=== PATIENT | female | born 1980 | race Caucasian/White ===

== ENCOUNTER 2018-06-27 17:17 | Emergency (ER) | payer MEDICAID ==
[~2018-06-27] VITALS: Ht 160 cm; Wt 117.9 kg
[~2018-06-27 17:17] MED LIST: ACIPHEX 20 MG T20 MG PO; HYDROCODON-ACE1 EAC7 PO; HYDROCODONE-AP1 EAC6 PO; PRILOSEC OTC20 MG PO; TOBRADEX EYE DRO5 ML OP; ZOFRAN ODT4 MG PO
[2018-06-27] MEDS ORDERED: [UNRECOGNIZED DRUG - OTHER] PO (17:44)
[2018-06-27] MEDS ORDERED: PHENTERMINE HCL30 MG PO (17:45)
[2018-06-27] MEDS ORDERED: LIDOCAINE PAIN1 EACH TOP (17:45)
[2018-06-27] MEDS ORDERED: NABUMETONE 750750 M1 PO (17:58)
[2018-06-27] MEDS ORDERED: PREDNISONE50 MG PO (17:58)
[2018-06-27 18:12] VITALS: BP 138/60
== END 2018-06-27 18:13 | disposition home or self-care (01) ==
LOC: M.ERS 17:17
DX: M17.0 Bilateral primary osteoarthritis of knee (principal); K74.60 Unspecified cirrhosis of liver; Z88.1 Allergy status to other antibiotic agents; Z88.6 Allergy status to analgesic agent; Z98.890 Other specified postprocedural states

== ENCOUNTER → 2021-04-21 | Emergency (ER) | payer MEDICAID ==
[~2021-04-21] VITALS: Ht 162.6 cm; Wt 82.6 kg
[~2021-04-21] MED LIST changes: +LIDOCAINE PAIN1 EACH TOP; +NABUMETONE 750750 M1 PO; +PHENTERMINE HCL30 MG PO; +PREDNISONE50 MG PO; +TOPROL XL25 MG PO; +[UNRECOGNIZED DRUG - OTHER] PO
[2021-04-21 17:34] VITALS: BP 137/94
== END ==
LOC: M.ERS 17:25
DX: J02.9 Acute pharyngitis, unspecified (principal); R10.9 Unspecified abdominal pain; K59.00 Constipation, unspecified; Z53.21 Procedure and treatment not carried out due to patient leaving prior to being seen by health care provider